=== PATIENT | female | born 1980 | race Two or more races ===

== ENCOUNTER 2019-09-28 13:45 | Inpatient (IN) | payer OTHER ==
[~2019-09-28] VITALS: Ht 167.6 cm; Wt 74.8 kg
[2019-10-13] MEDS ORDERED: MERCAPTOPURINE50 MG PO (12:22)
[2019-10-13] MEDS ORDERED: HUMIRA40 MG/0.2 (12:22)
[2019-10-13] MEDS ORDERED: XARELTO20 MG PO (12:23)
[2019-10-13] MEDS ORDERED: PEPCID AC20 MG PO (12:24)
[2019-10-13] MEDS ORDERED: DICY20TA PO (12:24)
[2019-10-13] MEDS ORDERED: PHENERGAN25 MG PO (12:24)
[2019-10-13] MEDS ORDERED: GABAPENTIN100 M2 PO (12:24)
[2019-10-13] MEDS ORDERED: CARAFATE1 GM PO (12:25)
[2019-10-13] MEDS ORDERED: RESTORIL30 M1 PO (12:25)
[2019-10-13] MEDS ORDERED: MAXALT10 MG PO (12:25)
[2019-10-13] MEDS ORDERED: BUSPAR PO (12:26)
[2019-10-20] MEDS ORDERED: BUSPIRONE HCL10 MG PO (15:32)
== END 2019-10-23 17:57 | disposition home or self-care (01) | DRG 330 ==
LOC: SURG 10-20 06:30 → O/R 10-20 06:30 → SURH 10-20 10:00 → SURG 10-20 18:44
PROVIDERS: ADMIT Colon & Rectal Surgery; ATTEND Colon & Rectal Surgery
PROC: 0DTJ4ZZ Resection of Appendix, Percutaneous Endoscopic Approach (ICD-10-PCS; 2019-10-20)
PROC: 0DBH4ZZ Excision of Cecum, Percutaneous Endoscopic Approach (ICD-10-PCS; principal; 2019-10-20 10:00)
DX: K35.890 Other acute appendicitis without perforation or gangrene (principal); K50.00 Crohn's disease of small intestine without complications; K63.89 Other specified diseases of intestine

== ENCOUNTER 2019-11-30 00:19 | Inpatient (IN) | payer OTHER ==
[~2019-11-30] VITALS: Ht 167.6 cm; Wt 72.6 kg
[~2019-11-30 00:19] MED LIST: BUSPAR PO; BUSPIRONE HCL10 MG PO; CARAFATE1 GM PO; DICY20TA PO; GABAPENTIN100 M2 PO; HUMIRA40 MG/0.2; MAXALT10 MG PO; MERCAPTOPURINE50 MG PO; PEPCID AC20 MG PO; PHENERGAN25 MG PO; RESTORIL30 M1 PO; XARELTO20 MG PO
[2019-12-04] MEDS ORDERED: CIPROFLOXA400 MG/200 PO (15:10)
[2019-12-04] MEDS ORDERED: INTESTINEX680 M1 PO (15:11)
[2019-12-04] MEDS ORDERED: HYOSCYAMINE0.125 M1 SL (15:11)
[2019-12-04] MEDS ORDERED: METRONIDAZ500 MG/100 PO (15:11)
== END 2019-12-04 17:52 | disposition home or self-care (01) | DRG 386 ==
LOC: ER 00:19 → SEC-K 16:23 → SURH 16:23 → MEDI 21:05 → SURH 12-01 11:55
PROVIDERS: ADMIT Colon & Rectal Surgery; ATTEND Colon & Rectal Surgery
DX: K50.00 Crohn's disease of small intestine without complications (principal); D68.61 Antiphospholipid syndrome; K29.60 Other gastritis without bleeding; D64.89 Other specified anemias; Z86.718 Personal history of other venous thrombosis and embolism; Z79.01 Long term (current) use of anticoagulants; Z20.828 Contact with and (suspected) exposure to other viral communicable diseases

== ENCOUNTER 2020-04-29 05:50 | Day surgery (SDC) | payer OTHER ==
[~2020-04-29 05:50] MED LIST changes: +CIPROFLOXA400 MG/200 PO; +HYOSCYAMINE0.125 M1 SL; +INTESTINEX680 M1 PO; +METRONIDAZ500 MG/100 PO
== END 2020-04-29 12:40 | disposition home or self-care (01) ==
LOC: AMB-ENDOS 05:50 → CIR.AMB 15:30
PROVIDERS: ATTEND Colon & Rectal Surgery
DX: K50.012 Crohn's disease of small intestine with intestinal obstruction (principal); K64.1 Second degree hemorrhoids; Z20.822 Contact with and (suspected) exposure to COVID-19

== ENCOUNTER 2021-03-22 06:00 | Day surgery (SDC) | payer OTHER ==
[~2021-03-22 06:00] MED LIST changes: +LOVENOX80 MG/0.8 SUBCUTANEO
== END 2021-03-22 15:40 | disposition home or self-care (01) ==
LOC: CIR.AMB 06:00
PROVIDERS: ATTEND Obstetrics & Gynecology Maternal & Fetal Medicine
DX: O02.1 Missed abortion (principal)

== ENCOUNTER 2023-01-23 07:19 | Day surgery (SDC) | payer OTHER | END 2023-01-23 21:20 | disposition home or self-care (01) | LOC: CIR.AMB 07:19 | PROVIDERS: ATTEND Colon & Rectal Surgery | DX: K64.4 Residual hemorrhoidal skin tags (principal); K64.8 Other hemorrhoids; K50.012 Crohn's disease of small intestine with intestinal obstruction; I10 Essential (primary) hypertension; Z20.822 Contact with and (suspected) exposure to COVID-19; Z88.6 Allergy status to analgesic agent ==